=== PATIENT | male | born 1945 | race Caucasian/White ===

== ENCOUNTER 2017-10-12 19:05 | Emergency (ER) | payer OTHER ==
[2017-10-12] MEDS ORDERED: METOCLOPRAMIDE 10 MG/2 ML VIAL IVP ONE (19:50)
[2017-10-12] MEDS ORDERED: NS 1,000 ML IV ONE (19:50)
[2017-10-12] MEDS ORDERED: KETOROLAC 30 MG/1 ML SDV IVP ONE (19:50)
--- NOTE | 2017-10-12 19:56 | EDPHY ---
HPI/HX/ROS/PE/MDM Narrative: CHIEF COMPLAINT: Visual changes, headache HPI: The patient is a 72 y/o male with a history of ocular migraines and sleep apnea complaining of 2 ocular migraines today. He usually develops migraines when he is dehydrated and reports it has been a long time since he has had an ocular migraine. Usually with ocular migraines, he sees bright colors and a a "fortress wall" pattern. He awoke today feeling "lousy". 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 He sat down and took two aspirins before driving home. On the way home he stopped at this ED and sat in the waiting room. His symptoms improved in 20 minutes so he continued to drive home. He developed a headache on the drive home. This evening, he decided to get takeout. As he was driving to the restaurant, he noticed he was having trouble reading road signs, starting with his peripheral vision. His left eye was better than his right. The blurriness progressed, prompting his visit. He denies any other associated symptoms. He reports he has never had two ocular migraines in one day and he has never had an ocular migraine without his bright colors and "fortress wall" pattern. REVIEW OF SYSTEMS: Aside from elements discussed in the HPI, a comprehensive 10-point review of systems was reviewed and is negative. PMH: Sleep apnea, ocular migraines SOCIAL HISTORY: , lives in [place], retired, worked at [employer] PHYSICAL EXAM: General:Patient is alert, in no acute distress. ENT:Eyes are normal to inspection. ENT inspection normal. No bruit. PERRL. Sclera normal. EOMI. Neck: Normal inspection. Full range of motion. Respiratory:No respiratory distress. Breath sounds normal bilaterally. Cardiovascular: Regular rate and rhythm. Strong peripheral pulses. Normal cap refill. Abdomen:The abdomen is nontender to palpation. There are no peritoneal signs. There are normal bowel sounds. Back: Normal to inspection. No tenderness to palpation. Skin: Normal color. No rash. Warm and dry. Extremities: Normal appearance. Full range of motion. Neuro: Oriented x3. Normal motor function. Normal sensory function. No pronator drift. Normal finger to nose bilaterally. Normal gait. 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 ED Course: The patient presents with his second ocular migraine today. Usually he has ocular migraines when dehydrated. He reports it is unusual to have two ocular migraines in one day. Plan for CBC, basic metabolic panel, head CT, 10 mg Reglan IV, 30 mg Toradol IV, 25 mg Benadryl IV, and 1 L IV NS fluids. 8:20 PM- The patient's CT was negative and labs are unremarkable. I reassessed him and his symptoms have completely resolved. We discussed option of further imaging to include MRI and/or CTA. The patient declines further testing and wants to go home. He understands I cannot 100% stroke or dissection or other pathology without further testing. MDM: This patient presents with two episodes of what appear to be consistent with prior ocular migraines. He has no history of trauma or manipulation. His symptoms completely resolved after typical migraine cocktail making SAH, CVA quite unlikely. Ultimately the patient refused further imaging - he understands I am unable to fully rule out potentially life-threatening disease such as CVA without further testing. I think his presentation is most consistent with ocular migraine. - Data Points Imaging Results: Imaging Impressions Head CT 10/12/17 19:51 Impression: 1. Negative for hemorrhage or mass lesion. 2. 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 Results called and discussed with Rodney Mccann MD on 10/12/2017 at 20:20. Laboratory Results: Laboratory Results 10/12/17 20:13 10/12/17 20:13 10/12/17 10/12/17 20:13 20:13 WBC 4.94 10^3/uL 10^3/uL (3.80-9.50) RBC 4.53 10^6/uL 10^6/uL (4.40-6.38) Hgb 14.5 g/dL g/dL (13.7-17.5) Hct 42.0 % % (40.0-51.0) MCV 92.7 fL fL (81.5-99.8) MCH 32.0 pg pg (27.9-34.1) MCHC 34.5 g/dL g/dL (32.4-36.7) RDW 13.3 % % (11.5-15.2) Plt Count 195 10^3/uL 10^3/uL (150-400) MPV 10.0 fL fL (8.7-11.7) Neut % (Auto) 52.3 % % (39.3-74.2) Lymph % (Auto) 36.4 % % (15.0-45.0) [place] % (Auto) 9.3 % % (4.5-13.0) Eos % (Auto) 1.2 % % (0.6-7.6) Baso % (Auto) 0.8 % % (0.3-1.7) Nucleat RBC Rel Count 0.0 % % (0.0-0.2) Absolute Neuts (auto) 2.58 10^3/uL 10^3/uL (1.70-6.50) Absolute Lymphs (auto) 1.80 10^3/uL 10^3/uL (1.00-3.00) Absolute Monos (auto) 0.46 10^3/uL 10^3/uL (0.30-0.80) Absolute Eos (auto) 0.06 10^3/uL 10^3/uL (0.03-0.40) Absolute Basos (auto) 0.04 10^3/uL 10^3/uL (0.02-0.10) Absolute Nucleated RBC 0.00 10^3/uL 10^3/uL (0-0.01) Immature Gran % 0.0 % % (0.0-1.1) Immature Gran # 0.00 10^3/uL 10^3/uL (0.00-0.10) Sodium 140 mEq/L mEq/L (135-145) Potassium 4.0 mEq/L mEq/L (3.3-5.0) Chloride 107 mEq/L mEq/L (97-110) Carbon Dioxide 22 mEq/l mEq/l (22-31) Anion Gap 11 mEq/L mEq/L (8-16) BUN 19 mg/dL mg/dL (7-23) Creatinine 1.2 mg/dL mg/dL (0.7-1.3) Estimated GFR 60 Glucose 75 mg/dL mg/dL (70-100) Calcium 8.9 mg/dL mg/dL (8.5-10.4) Medications Given: Discontinued Medications Diphenhydramine HCl (Benadryl Injection) 25 mg IVP EDNOW ONE Stop: 10/12/17 19:51 Last Admin: 10/12/17 20:21 Dose: 25 mg Sodium Chloride (Ns) 1,000 mls @ 0 mls/hr IV ONCE ONE; Wide Open PRN Reason: Protocol Stop: 10/12/17 19:51 Last Admin: 10/12/17 20:20 Dose: 1,000 mls Ketorolac Tromethamine (Toradol) 30 mg IVP EDNOW ONE Stop: 10/12/17 19:51 Last Admin: 10/12/17 20:21 Dose: 30 mg Metoclopramide HCl (Reglan Injection) 10 mg IVP EDNOW ONE Stop: 10/12/17 19:51 Last Admin: 10/12/17 20:22 Dose: 10 mg General Time Seen by Provider: 10/12/17 19:34 Initial Vital Signs: Initial Vital Signs Temperature (C) 37.1 C 10/12/17 19:18 Heart Rate 63 10/12/17 19:18 Respiratory Rate 16 10/12/17 19:18 Blood Pressure 144/94 H 10/12/17 19:18 O2 Sat (%) 94 10/12/17 19:18 O2 Delivery Mode Room Air Allergies/Adverse Reactions: Milk Containing Products [dairy] Allergy (Verified 10/12/17 19:25) Penicillins Allergy (Verified 10/12/17 19:25) Home Medications: Medication Instructions Recorded No Medications [NO HOME 1 [facility] 09/03/10 MEDICATIONS] Departure - Departure Disposition: Home, Routine, Self-Care Clinical Impression: Ocular migraine Condition: Good Instructions: Ocular Migraine (ED) Additional Instructions: 1. Follow up with your primary care provider for continued migraines. 2. Return to the emergency department for weakness on one side, difficulty speaking, or other worsening of condition. Referrals: ZABRINA CONNOLLY [Other] - As per Instructions Report Scribed for: Rodney Mccann Report Scribed by: Robina Keenan Date of Report: 10/12/17 Time of Report: 20:25 Physician Review and Approval Statement: Portions of this note were transcribed by an ED scribe. I personally performed the history, physical exam, and medical decision making; and confirm the accuracy of the information in the transcribed note.
[2017-10-12 20:27] LABS: PLATELET COUNT 195 10^3/uL (150-400)
[2017-10-12 21:17] VITALS: BP 124/69
== END 2017-10-12 21:17 | disposition home or self-care (01) ==
DX: G43.809 Other migraine, not intractable, without status migrainosus (principal); E86.9 Volume depletion, unspecified
CPT/HCPCS: 70450; 96361; 96374; 96375; 99285; J1200; J1885; J2765